=== PATIENT | female | born 2000 | race Caucasian/White ===

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

== ENCOUNTER → 2022-08-12 | Outpatient (CLI) | payer BC, OTHER ==
[~2022-08-12] MED LIST: ASHL1TAB PO; BUPR75TA5 PO; CLAR10CA3 PO; METO1TAB32 PO
== END ==
LOC: M LABSMTC 10:20
PROVIDERS: ATTEND Anesthesiology
DX: Z01.812 Encounter for preprocedural laboratory examination (principal); Z11.52 Encounter for screening for COVID-19

== ENCOUNTER 2022-08-15 12:33 | Day surgery (SDC) | payer BC ==
[~2022-08-15] VITALS: Ht 154.9 cm; Wt 80.3 kg
[~2022-08-15 12:33] MED LIST changes: +LIDOCAINE 2% 100MG/5ML SDV (FOR ANES.) As Ordered ONE; +NS 1,000 ML IV ONE; +propofoL 200 MG/20 ML VIAL As Ordered ONE
[2022-08-15] MEDS ORDERED: fentaNYL 100 MCG/2 ML INJECTION As Ordered ONE (14:31)
[2022-08-15 15:05] VITALS: BP 124/74
== END 2022-08-15 15:13 | disposition home or self-care (01) ==
LOC: M OPP 12:33
PROVIDERS: ATTEND Internal Medicine Gastroenterology
DX: K44.9 Diaphragmatic hernia without obstruction or gangrene (principal); K29.70 Gastritis, unspecified, without bleeding; K52.89 Other specified noninfective gastroenteritis and colitis; F32.9 Major depressive disorder, single episode, unspecified; F41.9 Anxiety disorder, unspecified; Z87.891 Personal history of nicotine dependence; Z85.858 Personal history of malignant neoplasm of other endocrine glands; Z79.3 Long term (current) use of hormonal contraceptives; Z79.899 Other long term (current) drug therapy; Z80.3 Family history of malignant neoplasm of breast; Z80.41 Family history of malignant neoplasm of ovary
CPT/HCPCS: 43239; 88305; J3010

== ENCOUNTER → 2023-12-25 | Outpatient (CLI) | payer BC ==
[~2023-12-25] MED LIST changes: -LIDOCAINE 2% 100MG/5ML SDV (FOR ANES.) As Ordered ONE; -NS 1,000 ML IV ONE; +OMEP10CASR PO; -propofoL 200 MG/20 ML VIAL As Ordered ONE
[2023-12-25 16:00] LABS: HCG, SERUM QUALITATIVE NEGATIVE (NEGATIVE)
== END ==
LOC: M PLALAB 13:46
PROVIDERS: ATTEND Registered Nurse
DX: N91.2 Amenorrhea, unspecified (principal)

== ENCOUNTER → 2024-03-11 | Outpatient (CLI) | payer BC ==
[2024-03-11 14:28] LABS: FREE T4 1.31 NG/DL (0.89-1.76); THYROID STIMULATING HORMONE 2.529 uIU/ML (0.55-4.78)
== END ==
LOC: M PLALAB 10:15
PROVIDERS: ATTEND Registered Nurse
DX: R53.83 Other fatigue (principal)

== ENCOUNTER → 2024-04-26 | Outpatient (CLI) | payer BC ==
[2024-04-26 13:08] LABS: HCG, SERUM QUANTITATIVE < 2.6 MIU/ML (<4.2)
[2024-04-26 13:11] LABS: THYROID STIMULATING HORMONE 1.705 uIU/ML (0.55-4.78)
[2024-04-26 13:12] LABS: ESTRADIOL 66.9 PG/ML; FOLLICLE STIMULATING HORMONE 6.3 mIU/ML; LUTEINIZING HORMONE 11.8 mIU/ML
[2024-04-26 13:13] LABS: FREE T4 1.17 NG/DL (0.89-1.76); PROLACTIN 5.01 NG/ML
[2024-04-26 13:15] LABS: FREE T3 3.6 PG/ML (2.3-4.2)
== END ==
LOC: M PLALAB 09:34
PROVIDERS: ATTEND Nurse Practitioner Family
DX: N92.6 Irregular menstruation, unspecified (principal)

== ENCOUNTER → 2024-05-10 | Outpatient (REF) | payer BC ==
[2024-05-10 19:12] LABS: GC DNA AMPLIFICATION NEGATIVE (NEGATIVE)
== END ==
LOC: M LAB REF 17:01
PROVIDERS: ATTEND Registered Nurse
DX: Z11.3 Encounter for screening for infections with a predominantly sexual mode of transmission (principal)

== ENCOUNTER → 2024-05-29 | Outpatient (REF) | payer BC | LOC: M LAB REF 16:06 | PROVIDERS: ATTEND Physician Assistant Medical | DX: J02.9 Acute pharyngitis, unspecified (principal) ==

== ENCOUNTER → 2024-06-18 | Outpatient (CLI) | payer BC ==
[2024-06-18 11:09] LABS: BASO % 0.5 % (0.0-1.0); EOS # 0.3 10^3/uL (0.0-0.5); EOS % 3.7 % (0.0-3.0); HEMATOCRIT 40.6 % (36.0-47.0); HEMOGLOBIN 13.2 g/dl (12.0-15.5); LYMPH # 2.3 10^3/uL (1.5-5.0); LYMPH % 30.7 % (24.0-44.0); MEAN CORPUSCULAR HEMOGLOBIN 28.8 pg (27.0-33.0); MEAN CORPUSCULAR HGB CONC 32.5 g/dl (32.0-36.5); MEAN CORPUSCULAR VOLUME 88.5 fl (80.0-96.0); MONO # 0.7 10^3/uL (0.0-0.8); NEUTROPHILS # 4.1 10^3/uL (1.5-8.5); NEUTROPHILS % 55.8 % (36.0-66.0); PLATELET COUNT, AUTOMATED 286 10^3/uL (150-450); RED BLOOD COUNT 4.59 10^6/uL (4.00-5.40); WHITE BLOOD COUNT 7.4 10^3/uL (4.0-10.0)
[2024-06-18 11:43] LABS: TOTAL IRON BINDING CAPACITY 345 UG/DL (250-425)
[2024-06-18 11:44] LABS: ALBUMIN 3.9 G/DL (3.2-5.2); ALKALINE PHOSPHATASE 85 U/L (35-104); ALT/SGPT 24 U/L (7.0-40); AST/SGOT 17 U/L (<34); BILIRUBIN,TOTAL 0.5 MG/DL (0.3-1.2); BLOOD UREA NITROGEN 16 MG/DL (9-23); CALCIUM LEVEL 9.8 MG/DL (8.5-10.1); CARBON DIOXIDE LEVEL 30 MMOL/L (20-31); CHLORIDE LEVEL 104 MMOL/L (98-107); CREATININE FOR GFR 0.75 MG/DL (0.55-1.30); GLOMERULAR FILTRATION RATE > 60.0 (>60); GLUCOSE, FASTING 86 MG/DL (60-100); POTASSIUM SERUM 4.3 MMOL/L (3.5-5.1); SODIUM LEVEL 139 MMOL/L (136-145); TOTAL PROTEIN 7.4 G/DL (5.7-8.2)
[2024-06-18 11:45] LABS: IRON (FE) 80 UG/DL (50-170); PERCENT SATURATION 23.2 % (13.2-45.0)
[2024-06-18 11:47] LABS: FREE T3 3.4 PG/ML (2.3-4.2); THYROID PEROXIDASE ANTIBODY < 28.0 U/ML (<60.0); THYROID STIMULATING HORMONE 2.675 uIU/ML (0.55-4.78)
[2024-06-18 11:48] LABS: ESTRADIOL 62.3 PG/ML; FOLLICLE STIMULATING HORMONE 9.4 mIU/ML; FREE T4 1.17 NG/DL (0.89-1.76); LUTEINIZING HORMONE 16.2 mIU/ML
[2024-06-18 11:49] LABS: FERRITIN 44.6 NG/ML (7.3-270.7); PROGESTERONE 0.99 NG/ML; TOTAL 25(OH) VITAMIN D 34.2 NG/ML (20.0-100.0)
[2024-06-18 11:50] LABS: CORTISOL AM 14.3 UG/DL (4.3-22.4)
[2024-06-21 10:47] LABS: INSULIN TOTAL2 8.2 uIU/mL (<=18.4)
[2024-06-21 17:12] LABS: ZINC PLASMA 105 mcg/dL (60-130)
[2024-06-22 03:19] LABS: TISSUE TRANSGLUTAMINASE IgA < 1.0 U/mL (<15.0); TISSUE TRANSGLUTAMINASE IgG < 1.0 U/mL (<15.0)
== END ==
LOC: M PLALAB 07:09
PROVIDERS: ATTEND Registered Nurse
DX: E66.9 Obesity, unspecified (principal); L65.9 Nonscarring hair loss, unspecified; K21.9 Gastro-esophageal reflux disease without esophagitis; R53.83 Other fatigue

== ENCOUNTER → 2024-06-28 | Outpatient (CLI) | payer BC ==
[2024-06-28 15:19] LABS: URIC ACID 4.6 MG/DL (3.1-7.8)
[2024-06-28 15:22] LABS: C REACTIVE PROTEIN QUANTITATIV 0.56 MG/DL (<1.0); RHEUMATOID FACTOR QUANT < 3.5 IU/ML (<14)
[2024-06-29 15:59] LABS: ANA SCREEN, IFA NEGATIVE (NEGATIVE)
[2024-06-29 22:02] LABS: CYCLIC CITRULLINATED PEPTIDE < 16 UNITS (<20)
== END ==
LOC: M PLALAB 10:38
PROVIDERS: ATTEND Registered Nurse
DX: M25.50 Pain in unspecified joint (principal)

== ENCOUNTER → 2024-08-04 | Outpatient (CLI) | payer BC | LOC: M RAD 11:00 | PROVIDERS: ATTEND Nurse Practitioner Family | DX: R10.32 Left lower quadrant pain (principal); R93.89 Abnormal findings on diagnostic imaging of other specified body structures ==

== ENCOUNTER → 2024-08-04 | Outpatient (CLI) | payer BC ==
[2024-08-04 10:55] LABS: APPEARANCE, URINE CLEAR (CLEAR); BACTERIA, URINE AUTO NEGATIVE (NEGATIVE); BILIRUBIN, URINE AUTO NEGATIVE (NEGATIVE); BLOOD, URINE BLOOD NEGATIVE (NEGATIVE); COLOR, URINE STRAW (YELLOW); GLUCOSE, URINE (UA) AUTO NEGATIVE (NEGATIVE); KETONE, URINE AUTO NEGATIVE (NEGATIVE); LEUKOCYTE ESTERASE, URINE AUTO NEGATIVE (NEGATIVE); NITRITE, URINE AUTO NEGATIVE (NEGATIVE); PROTEIN, URINE AUTO NEGATIVE (NEGATIVE); RBC, URINE AUTO 0 /HPF (0-3); SPECIFIC GRAVITY URINE AUTO 1.002 (1.002-1.035); SQUAMOUS EPITHELIAL CELL UR AU 0 /HPF (0-6); UROBILINOGEN, URINE AUTO 0.2 mg/dL (0.0-2.0); WBC, URINE AUTO 0 /HPF (0-3)
[2024-08-04 10:56] LABS: BASO % 0.5 % (0.0-1.0); EOS # 0.1 10^3/uL (0.0-0.5); EOS % 1.7 % (0.0-3.0); HEMATOCRIT 40.6 % (36.0-47.0); HEMOGLOBIN 13.2 g/dl (12.0-15.5); LYMPH # 2.7 10^3/uL (1.5-5.0); LYMPH % 31.9 % (24.0-44.0); MEAN CORPUSCULAR HEMOGLOBIN 28.9 pg (27.0-33.0); MEAN CORPUSCULAR HGB CONC 32.5 g/dl (32.0-36.5); MONO # 0.6 10^3/uL (0.0-0.8); NEUTROPHILS # 4.9 10^3/uL (1.5-8.5); NEUTROPHILS % 58.7 % (36.0-66.0); PLATELET COUNT, AUTOMATED 265 10^3/uL (150-450); RED BLOOD COUNT 4.56 10^6/uL (4.00-5.40); WHITE BLOOD COUNT 8.3 10^3/uL (4.0-10.0)
[2024-08-04 11:19] LABS: ALBUMIN 3.9 G/DL (3.2-5.2); ALKALINE PHOSPHATASE 75 U/L (35-104); ALT/SGPT 28 U/L (7.0-40); AST/SGOT 17 U/L (<34); BILIRUBIN,TOTAL 0.5 MG/DL (0.3-1.2); BLOOD UREA NITROGEN 18 MG/DL (9-23); CALCIUM LEVEL 9.3 MG/DL (8.5-10.1); CARBON DIOXIDE LEVEL 28 MMOL/L (20-31); CHLORIDE LEVEL 107 MMOL/L (98-107); CREATININE FOR GFR 0.73 MG/DL (0.55-1.30); GLOMERULAR FILTRATION RATE > 60.0 (>60); GLUCOSE, FASTING 85 MG/DL (60-100); POTASSIUM SERUM 4.3 MMOL/L (3.5-5.1); SODIUM LEVEL 142 MMOL/L (136-145); TOTAL PROTEIN 7.2 G/DL (5.7-8.2)
[2024-08-04 11:24] LABS: HCG, SERUM QUALITATIVE NEGATIVE (NEGATIVE)
== END ==
LOC: M PLALAB 08:18
PROVIDERS: ATTEND Nurse Practitioner Family
DX: R10.32 Left lower quadrant pain (principal)

== ENCOUNTER → 2024-12-21 | Outpatient (CLI) | payer BC ==
[2024-12-21 10:50] LABS: BASO # 0.1 10^3/uL (0.0-0.2); BASO % 0.9 % (0.0-1.0); EOS # 0.3 10^3/uL (0.0-0.5); EOS % 3.1 % (0.0-3.0); LYMPH # 2.4 10^3/uL (1.5-5.0); LYMPH % 29.4 % (24.0-44.0); MONO # 0.5 10^3/uL (0.0-0.8); MONO % 6.5 % (2.0-8.0); NEUTROPHILS # 4.8 10^3/uL (1.5-8.5); NEUTROPHILS % 59.9 % (36.0-66.0); PLATELET COUNT, AUTOMATED 280 10^3/uL (150-450)
[2024-12-21 11:24] LABS: CORTISOL AM 11.1 UG/DL (4.3-22.4)
[2024-12-21 11:26] LABS: FREE T4 1.42 NG/DL (0.89-1.76)
[2024-12-21 11:27] LABS: ALT/SGPT 21 U/L (7.0-40); AST/SGOT 17 U/L (<34); CALCIUM LEVEL 9.5 MG/DL (8.5-10.1); CARBON DIOXIDE LEVEL 27 MMOL/L (20-31); CHLORIDE LEVEL 105 MMOL/L (98-107); CREATININE FOR GFR 0.82 MG/DL (0.55-1.30); ESTRADIOL 53.7 PG/ML; GLOMERULAR FILTRATION RATE > 90.0 (>60); IRON (FE) 52 UG/DL (50-170); LUTEINIZING HORMONE 6.1 mIU/ML; PERCENT SATURATION 19.5 % (13.2-45.0); POTASSIUM SERUM 4.7 MMOL/L (3.5-5.1); SODIUM LEVEL 142 MMOL/L (136-145)
[2024-12-21 11:29] LABS: TOTAL 25(OH) VITAMIN D 55.3 NG/ML (20.0-100.0)
[2024-12-21 11:30] LABS: PROGESTERONE 1.02 NG/ML
[2024-12-21 11:35] LABS: THYROID PEROXIDASE ANTIBODY < 28.0 U/ML (<60.0)
== END ==
LOC: M PLALAB 07:07
PROVIDERS: ATTEND Registered Nurse
DX: L65.9 Nonscarring hair loss, unspecified (principal); E66.9 Obesity, unspecified; K21.9 Gastro-esophageal reflux disease without esophagitis; R53.83 Other fatigue